=== PATIENT | female | born 1940 | race Caucasian/White ===

== ENCOUNTER 2025-08-25 15:13 | Outpatient (AMB) | payer MEDICARE, SELFPAY ==
[2025-08-25 15:15] VITALS: BP 179/79; PULSE 84; RESP 16; O2SAT 98; BMI 38.1
--- NOTE | 2025-08-25 15:15 | A.OFFVIS_ITS ---
Vital Signs 08/25/25 15:15 Height 5 ft 3 in Weight 215 lb BMI 38.1 BP 179/79 H Blood Pressure Location Lt brachial Position Sitting Respiration 16 Pulse 84 Pulse Source Pulse Oximeter Pulse Oximetry (%) 98 Oxygen Delivery Method Room Air Intake Visit Reasons: Neck/shoulder pain Huc Required: No Accompanied by: Daughter Allergies gabapentin Allergy (Mild, Verified 08/25/25 15:21) stroke shingles vaccine Allergy (Severe, Uncoded 08/25/25 15:21) hives HPI Comments Details: Margot is very pleasant 85 years old female who presents in my office with complains on pain in the middle of the neck with radiation of the pain into bilateral shoulders as well as pain in the lower back. She reported that before her pacemaker surgery she did not have any symptoms like that. She reports that her pain in the neck is 8/10 pain in the lower back is 9/10. Because of her pain she can not do activities of daily living, she can not sleep normally she is able to take care of herself but she can not function normally. She is retired individual. Weather changes and motions aggravate her pain and Voltaren gel helps her pain minimally to moderately. The pain is worse during the daytime and alleviated by positioning in bed and sleeping. She had multiple images performed for her lumbar and cervical spine unfortunately those images are not available for me today. She completed physical therapy and continues to do so with visiting nurse. She denies any help from the physical therapy. She is getting massage therapy with minimal effectiveness. She also went to Occupational therapy it was not effective for her pain. She did not have any injections. Her past medical history significant for headaches, hypertension, dizziness, history of heart murmur, shortness of breath, history of UTI, digestive problems and arthritis. She has very extensive past surgical history. 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 It was separate surgery performed at [facility]. She recently started to develop paroxysmal AFib and she was started on pacemaker. She is currently getting Coumadin because of her AFib and she needs Lovenox bridge if she goes for any invasive procedures which would require stop of the Coumadin. She admitted smoking in the past but denies smoking at this time. She denies drinking alcohol denies drinking coffee and caffeinated beverages she denies recreational drugs. PFSH Medical History (Updated 08/26/25 @ 13:01 by Eddy Salgado MD) Pacemaker Bladder prolapse, female, acquired Gall bladder disease Surgical History (Updated 08/25/25 @ 15:37 by Kate Beck MA) Hx of partial nephrectomy H/O left wrist surgery History of knee replacement Hx of hysterectomy Review of Systems Const All systems reviewed & are unremarkable except as noted in HPI and below ENT Reports Normal hearing present Neuro Reports Normal hearing present, Denies Abnormal speech present and Denies Sensory deficit (Neuro) Physical Exam Vital Signs: Last Vital Signs Pulse 84 08/25/25 15:15 Resp 16 08/25/25 15:15 BP 179/79 H 08/25/25 15:15 Pulse Ox 98 08/25/25 15:15 Oxygen Delivery Method Room Air 08/25/25 15:15 BMI result Body Mass Index 38.1 Const General: no acute distress Nutritional Appearance: average body habitus Orientation/consciousness: patient oriented x3 Limitations: physical limitations Eyes General: appearance normal, both eyes and all related structures Pupils: Equal, round and reactive pupils present EOM: EOMs intact bilaterally Neck Other: Limited motion range of the cervical spine. Spurling test is negative. Lhermitte test is negative. Valsalva maneuver is negative. Chest Chest palpation & inspection: normal inspection of the chest Resp Effort & Inspection: normal respiratory effort, able to speak in complete sentences, normal respiratory pattern, no audible wheezes and no cough Cardio Jugular venous distension: no JVD GI Inspection: Yes normal to inspection Neuro General: patient oriented x3 and gait normal Cranial nerves: Yes CN's II-XII intact bilaterally, Yes Equal, round and reactive pupils present, Yes Normal hearing present and Yes Ability to bila terally elevate shoulders present Speech: No Abnormal speech present Gait exam (Neuro): Normal gait present Motor exam (neuro): 5/5 motor strength present throughout Sensory Exam: No Sensory deficit (Neuro) Extrem General: No pedal edema Psych Speech and movement: Normal speech and movement present Affect: normal affect Attitude: cooperative Thought process: Normal thought process present Thought content: Normal thought content present Insight: Good insight present (Psych) Judgement: Good judgement present (Psych) Assessment & Plan Assessment & Plan (1) Spondylosis of cervical spine: Code(s): M47.812 - Spondylosis without myelopathy or radiculopathy, cervical region Category: Medical Plan On physical exam this patient is most likely suffering from spondylosis of cervical spine. I requested a daughter of this patient who was in presents today with the patient to bring me the reports of those diagnostic studies which were done in [facility]. Meanwhile I will schedule this patient for diagnostic medial branch block C4, C5, C6 bilateral to help her pain. If this will be a good to help the pain of this patient radiofrequency ablation of the medial branches versus sprint PNS of the multifidus muscle of the neck could be considered to help the pain of this patient. Coding Level of Care Code New Pt Level 3 (26501) Diagnoses Spondylosis of cervical spine M47.812
--- OUTSIDE RECORDS SUMMARY | 2025-08-25 19:04 | XMS_ITS | Clinical Summary ---
Author Organization [facility] Address [address] [place] [phone] Phone Care Team Providers Care Spike Driver Name Role Phone Clarisse Longoria MD Primary Care Provider [phone] Allergies Active Allergy Reactions Criticality Noted Date Comments Furosemide Other (see comments) 07/03/2022 Other reaction(s): 'go crazy and fell out of bed Other Reaction(s): 'go crazy and fell out of bed Other reaction(s): 'go crazy and fell out of bed Gabapentin Other (see comments) 03/12/2021 Other reaction(s): chest pain and could not breathe Other Reaction(s): heart attack symptoms Ibuprofen GI intolerance,Other (see comments) 08/09/2024 Zoster Vac Recomb Adjuvanted Hives Low 07/07/2025 broke out in shingles at injection site Zoster Vaccine Recombinant, Adjuvanted Hives 08/09/2024 Medications acetaminophen (TYLENOL) 325 MG tablet Take 975 mg by mouth every 6 hours 11/18/2024 Active albuterol HFA (PROVENTIL HFA;VENTOLIN HFA) 108 (90 Base) MCG/ACT inhaler Inhale 2 puffs every 30 minutes as needed 05/27/2022 Active amiodarone (PACERONE) 200 MG tablet Take 100 mg by mouth in the morning. 05/02/2025 Active atorvastatin (LIPITOR) 20 MG tablet Take 20 mg by mouth every night Active atorvastatin (LIPITOR) 20 MG tablet Take 20 mg by mouth 07/23/2021 Active budesonide (PULMICORT) 0.5 MG/2ML nebulizer solution Inhale 0.5 mg 03/04/2025 Active budesonide-form oterol (SYMBICORT) 160-4.5 MCG/ACT inhaler Inhale 2 puffs in the morning and 2 puffs in the evening. 02/02/2025 Active Butalbital-APAP -Caffeine 50-300-40 MG capsule Take 1 capsule by mouth 10/31/2021 Active cetirizine (ZyrTEC) 10 MG tablet Take 10 mg by mouth in the morning. 07/23/2021 Active famotidine (PEPCID) 20 MG tablet Take 20 mg by mouth in the morning and 20 mg in the evening. 07/23/2021 Active fluticasone (FLONASE) 50 MCG/ACT nasal spray 1 spray in the morning. Active Fluticasone-Jacques meterol 250-50 MCG/ACT aerosol powder Inhale 1 puff in the morning and 1 puff in the evening. Active levothyroxine (SYNTHROID, LEVOTHROID) 50 MCG tablet Take 50 mcg by mouth 07/23/2021 Active montelukast (SINGULAIR) 10 MG tablet Take 10 mg by mouth every night 07/19/2022 Active warfarin (COUMADIN) 5 MG tablet Take by mouth Active oxyCODONE (ROXICODONE) 5 MG immediate release tablet take 1 tablet (5 mg) by oral route every 6 hours as needed 06/23/2025 Active amLODIPine (NORVASC) 10 MG tablet Take 1 tablet (10 mg total) by mouth 07/07/2025 Active bumetanide (BUMEX) 1 MG tablet Take 1 tablet (1 mg total) by mouth 1 (one) time each day if needed (weight gain 2 lb) 07/07/2025 Active Active Problems Problem Noted Date Diagnosed Date Asthma 05/30/2025 Fournier's esophagus 05/30/2025 Chronic kidney disease 05/30/2025 Gastro-esophageal reflux disease without esophag itis 05/30/2025 Glaucoma 05/30/2025 H/O: pulmonary embolus 05/30/2025 Hyperlipidemia 05/30/2025 Hypertensive disorder 05/30/2025 Disorder of thyroid 05/30/2025 Long-term current use of anticoagulant Malignant tumor of kidney 05/30/2025 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/30/2025 Severe obesity 05/30/2025 Vertigo 05/30/2025 Mass of urinary system structure 11/15/2024 Antiphospholipid antibody syndrome 11/09/2024 Overview (05/30/2025): Lifelong anticoagulation, f/b pcp Chronic obstructive pulmonary disease 11/09/2024 S/P nephrectomy 11/09/2024 Overview (05/30/2025): Left nephrectomy for urothelial ca Encounters Date Type Department Care Team Description 07/07/2025 1:30 PM EDT Office Visit [facility] [address] [place] [phone] Luis Norris MD Antiphospholipid antibody syndrome (HCC) (Primary Dx); Stage 3b chronic kidney disease (HCC) from Last 3 Months Social History Tobacco Use Types Packs/Day Years Used Date Smoking Tobacco: Never Assessed Comments Unknown Sex and Gender Information Value Date Recorded Sex Assigned at Not on file Legal Sex Female 8:52 AM EDT Gender Identity Not on file Sexual Orientation Not on file Last Filed Vital Signs Vital Sign Reading Time Taken Comments Blood Pressure 120/62 07/07/2025 1:53 PM EDT Pulse 60 07/07/2025 1:53 PM EDT Temperature - - Respiratory Rate - - Oxygen Saturation 93% 07/07/2025 1:53 PM EDT Inhaled Oxygen Concentration - - Weight 99.4 kg (219 lb 3.2 oz) 07/07/2025 1:53 P M EDT Height - - Body Mass Index - - Plan of Treatment Upcoming Encounters Date Type Department Care Team (Late st Contact Info) Description 09/29/2025 3:30 PM EST Office Visit [facility] [address] [place] [address] Luis Norris MD [address] [facility] [address] [place] [id number] Health Maintenance Due Date Last Done Comments Influenza Vaccine (#1) 2025 Pneumococcal Vaccine: 50+ Years Completed 10/21/2016, 02/03/2012 Hepatitis B Vaccine Aged Out No longe r eligible based on patient's age to complete this topic Insurance [facility] Care Teams Spike Driver Relationship Specialty Start Date End Date Clarisse Longoria MD [address] [place] [address] PCP - General Internal Medicine 07/07/25
--- OUTSIDE RECORDS SUMMARY | 2025-08-25 19:04 | XMS_ITS | Encounter Summary ---
Author Organization [facility] Address [address] [place] [address] Phone Care Team Providers Care Residential Property Tax Appraiser Name Role Phone Dulce Jacobsen MD Primary Care Provide r Clarisse Longoria MD Primary Care Provider [phone] Kieran Jackson MD Unavailable [phone] Reason for Referral * Physical Therapy (Routine) - Closed Specialty Diagnoses / Procedures Referred By Arnulfo ni Referred To Contact Physical Therapy Diagnoses Encounter for rehabilitation System, Provider Not In, PhD [id number] [place] [phone] Phone: tel: Referral ID Status Reason Start Date Expiration Date Visits Re quested Visits Authorized [id number] Closed 10/20/2018 11/09/2019 99 [phone] Encounter Details Date Type Department Care Team (Late st Contact Info) Description 10/06/2018 Transcribe Orders [facility] [address] [place] [phone] Dulce Jacobsen MD [address] [place] [phone] Encounter for rehabilitation (Primary Dx) Social History Tobacco Use Types Packs/Day Years Used Date Smoking Tobacco: Never Assessed Comments Unknown Sex and Gender Information Value Date Recorded Sex Assigned at Female 10/14/2024 3:54 PM EST Legal Sex Female 3:44 PM EDT Gender Identity Female 10/14/2024 3:54 PM EST Sexual Orientation Straight 10/14/2024 3: 54 PM EST documented as of this encounter Plan of Treatment Scheduled Referrals Name Type Priority Associated Diagnoses Orde r Schedule Ambulatory referral to [facility] Physical Therapy Outpatient Referral Routine Encounter for rehabilitation Ordered: 10/06/2018 documented as of this encounter Visit Diagnoses Diagnosis Encounter for rehabilitation- Primary documented in this encounter Additional Health Concerns Infection Onset Date Last Indicated Resolved Time CoV-Risk 08/09/2024 08/09/2024 08/20/2024 1:22 AM EDT documented as of this encounter Care Teams Residential Property Tax Appraiser Relationship Specialty Start Date End Date Dulce Jacobsen MD [address] [place] [phone] PCP - General Internal Medicine 03/29/16 07/16/21 Clarisse Longoria MD [address] [place] [address] [address] [place] [address] [email or web address] PCP - General Internal Medicine 07/17/21 Kieran Jackson MD [address] [phone] [email or web address] Referring Physician Urology 10/14/24 documented as of this encounter Additional Source Comments The information contained in this document represents components of the legal health record. It is not the complete legal health record.[facility]
--- OUTSIDE RECORDS SUMMARY | 2025-08-25 19:05 | XMS_ITS | Patient Health Record ---
Author Organization [facility] Address [address] [place] [address] Care Team Providers Care Assistant Chief Nursing Officer Name Role Phone Clarisse Longoria Primary Care Provider Wally Dickson Unavailable [phone] Allergies Allergen (clinical drug ingredient) Drug/Non Drug Allergy documented on EMR Reaction Allergy Type Onset Date Status ibuprofen Advil upset stomach Drug Allergy Act perla varicella zoster virus glycoprotein E Shingrix hives Drug Allergy Active gabapentin Gabapentin heart attack symptoms Drug Allergy Active Reason For Referral No Information Medications Medication SIG (Take, Route, Frequency, Duration) Notes Start Date End Date Status Coumadin Active Diclofenac Sodium 1 % as directed Externally Active Butalbital-Acetaminophen 50-325 MG 1 tablet as needed Orally every 4 hrs Active Carvedilol 6.25 MG 1 tablet with food Orally Twice a day; Duration: 30 day(s) Active amLODIPine Besylate 5 MG 1 tablet Orally Once a day; Duration: 30 day(s) Active Atorvastatin Calcium 20 MG 1 tablet Oral ly Once a day; Duration: 30 day(s) Active ZyrTEC Allergy 10 MG 1 tablet Orally Onc e a day; Duration: 30 day(s) Active Famotidine 20 MG 1 tablet at bedtime as needed Orally Once a day; Duration: 30 day(s) Active Levothyroxine Sodium 50 MCG 1 tablet in the morning on an empty stomach Orally Once a day; Duration: 30 day(s) Active flonase 50 mcg/act A ctive Social History Tobacco Use: Social History Observation Description Date Details (start date - stop date) Former Smoker NA - NA Tobacco Use/Smoking Question Answer Notes Are you a: former smoker Additional Findings: Tobacco Non-User Current no n-smoker Alcohol Screen Question Answer Notes Did you have a drink containing alcohol in the p ast year? No Points 0 Interpretation Negative Tobacco use other than smoking: Question Answer Notes Are you an other tobacco user? No Problems Problem Type SNOMED Code ICD Code Onset Dates Problem Status W/U Status Risk Notes Problem Bilateral atherosclerosis of arteries of lower limbs (disorder) ([id number] ) Atherosclerosis of [place]hoe artery of both lower extremities, with unspecified presence of clinical manifestation (I70.203) Active confirmed Plan Of Treatment Pending Test Test Name Order Date X ray : Foot, left 3V 02/06/2022 X ray : Foot, right 3V 02/06/2022 Insurance Providers Payer Name Payer Address Payer Phone Subscriber Number Group Number Insured Name Patient Relationship to Insured Coverage Start Date Coverage End Date [facility] 65 Medicare Preferred [address] [place] [address] [id number] Margot Rose Self - patient is the insured Medical (General) History Medical History History ICD Code Arthritis Back,Hip,and Knee pain Broken bones CAD (Cholesterol) Cataracts Chicken pox Gall bladder problems Headaches/Migraines Hiatal hernia High blood pressure Joint implants/screws Measles Mumps Barretts esophagus raynauds disease Reflux ( GERD) chronic sinusitis thyroid Vascular phlebitis (clots) Surgical History Surgery Date(Month/Year) gall bladder hysterectomy 1998 knee surgery 2014 Left Hand Surgery 02/2021 bladder surgery 07/2021
--- OUTSIDE RECORDS SUMMARY | 2025-08-25 19:05 | XMS_ITS | Clinical Summary ---
Author Organization [facility] Address [address] [facility] [address] [place] [address] Phone Care Team Providers Care Autism Tutor Name Role Phone Clarisse Longoria MD Primary Care Provider [phone] Kieran Jackson MD Unavailable [phone] Allergies Active Allergy Reactions Criticality Noted Date Comments Furosemide 07/03/2022 Other Reaction(s): 'go crazy and fell out of bed Other reaction(s): 'go crazy and fell out of bed Gabapentin 03/12/2021 Other Reaction(s): heart attack symptoms Ibuprofen GI Upset 08/09/2024 Varicella-Zoster Ge-As01b (Pf) 07/03/2022 broke out in shingles at injection site broke out in shingles at injection site Varicella-Zoster Virus Glycoprotein E, Recombinant Hives 08/09/2024 Medications albuterol 90 mcg/actuation inhaler Inhale 2 puffs into the lungs every 4 (four) hours as needed for shortness of breath/dyspnea or wheezing. 5 Active carvedilol (COREG) 6.25 MG tablet Take 6.25 mg by mouth 2 (two) times a day with meals. 2 Active cetirizine (ZYRTEC) 10 MG tablet Take 10 mg by mouth daily. 1 Active diclofenac sodium (VOLTAREN) 1 % Gel Apply topically. 1 Active montelukast (SINGULAIR) 10 mg tablet Take 1 tablet by mouth every morning. 4 Active nystatin (NYAMYC) powder Apply topically. 2 Active PEG 400-propylene glycol (SYSTANE) 0.4-0.3 % Drop Apply 1 drop to eye daily. Active atorvastatin (LIPITOR) 20 MG tablet Take 20 mg by mouth daily. 1 Active famotidine (PEPCID) 20 MG tablet Take 20 mg by mouth 2 (two) times a day. Active levothyroxine (SYNTHROID, LEVOTHROID) 50 MCG tablet Take 50 mcg by mouth daily. Active latanoprost (XALATAN) 0.005 % ophthalmic solution Place 1 drop into the left eye nightly at bedtime. 4 Active amLODIPine (NORVASC) 2.5 MG tablet Take 2.5 mg by mouth daily. Active butalbital-acet aminophen-caffe ine (FIORICET, ESGIC) 50-325-40 mg per tablet Take 1 tablet by mouth every 4 (four) hours as needed for pain (specific location in comments). Active acetaminophen (TYLENOL) 325 mg tablet Take 3 tablets (975 mg total) by mouth every 6 (six) hours. 5 Active warfarin sodium (WARFARIN, BULK,) 100 % Powd Take 5 mg by mouth daily. 5mg daily 12/15/24 5 Active budesonide-form oterol (BREYNA) 160-4.5 mcg/actuation inhaler Inhale 2 puffs into the lungs 2 (two) times a day. 5 Active Active Problems Problem Noted Date Diagnosed Date Ureteral mass 11/15/2024 Antiphospholipid antibody syndrome 11/09/2024 Overview (11/09/2024): Lifelong anticoagulation, f/b pcp COPD (chronic obstructive pulmonary disease) PAD (peripheral artery disease) 11/09/2024 Urothelial carcinoma 11/09/2024 S/p nephrectomy 11/09/2024 Overview (11/09/2024): Left nephrectomy for urothelial ca Hypertensive disorder Disorder of thyroid Family History Medical History Relation Comments Macular degeneration Mother Diabetes Neg Hx Glaucoma Neg Hx Relation Status Comments Mother Social History Tobacco Use Types Packs/Day Years Used Date Smoking Tobacco: Former Smokeless Tobacco: Never Tobacco Cessation:Counseling Given: Not Answered Alcohol Use Standard Drinks/Week Comments Never 0 (1 standard drink = 0.6 oz pur e alcohol) Home Health Assessment: Transportation Answer Date Recorded Lack of Transportation (Medical) No 02/09/2025 Lack of Transportation (Non-Medical) No 02/09/2025 Patient Unable or Declines to Respond No 02/09/2025 Child or Family Care Answer Date Record ed Do you have problems with on e of the following making it difficult for you to work, study, or receive health care? No 11/30/2024 Education Answer Date Recorded Are you interested in more education? Not on escobar e 03/07/2023 Are you concerned about learning? Not on file 03/07/2023 No 03/07/2023 No 03/07/2023 Food Answer Date Recorded Within the past 6 months we worried whether our food would run out before we got money to buy more. Never True 11/30/2024 Within the past 6 months the food we bought just didn't last and we didn't have enough money to get more. Never True Residential Stability Answer Date Recor ded What is your housing situation today? I have kayleen sing 11/30/2024 How many times have you move d in the past 12 months? Zero (I did not move) 11/30/2024 Paying for Meds Answer Date Recorded Do you have trouble paying for medicines? No 11/30/2024 Paying Utility Bills Answer Date Record ed Do you have trouble paying your heating or elect ricity bill? No 11/30/2024 Transportation Answer Date Recorded Has the lack of transportati on kept you from medical appointments or from getting medications? No 11/30/2024 Digital Access Answer Date Recorded No 11/15/2024 Yes 11/15/2024 Do you have reliable internet access at home? Ye s 11/15/2024 Do you have a device (e.g., phone, tablet, computer) with a working camera? Yes 11/15/2024 Intimate Partner Violence Answer Date R ecorded Are you denied basic needs s uch as food, clothing, or medical care? Deferred 11/15/2024 In the past 12 months have y ou been in a relationship with a person who hurts, threatens, or tries to control you? Deferred 11/15/2024 Are you denied basic needs s uch as food, clothing, or medical care? Deferred 11/15/2024 In the past 12 months have y ou been in a relationship with a person who hurts, threatens, or tries to control you? Deferred 11/15/2024 Comments No Sex and Gender Information Value Date Recorded Sex Assigned at Female 10/14/2024 3:54 PM EST Legal Sex Female 3:44 PM EDT Gender Identity Female 10/14/2024 3:54 PM EST Sexual Orientation Straight 10/14/2024 3: 54 PM EST Last Filed Vital Signs Vital Sign Reading Time Taken Comments Blood Pressure 146/65 02/18/2025 2:30 PM EDT Pulse 59 02/18/2025 2:30 PM EDT Temperature 36.3 C (97.4 F) 02/09/2025 10:34 AM EDT Respiratory Rate 18 02/09/2025 10:34 AM EDT Oxygen Saturation 99% 02/09/2025 10:34 AM EDT Inhaled Oxygen Concentration - - Weight 100.7 kg (222 lb) 02/18/2025 2:27 PM EDT Height 160 cm (5' 3 ) 02/18/2025 2:27 PM EDT Body Mass Index 39.33 02/18/2025 2:27 PM EDT Plan of Treatment Health Maintenance Due Date Last Done Comments TSH LEVEL 1941 DEPRESSION SCREENING 1953 OSTEOPOROSIS SCREENING INITIAL (ONE-TIME) 2006 RSV VACCINE (1 - 1-dose 75+ series) 2016 INFLUENZA VACCINE (#1) 2025 , 08/27/2023, 09/02/2022, Additional history exists COVID-19 VACCINE ( season) 2025 12/28/2024, 08/27/2023, 09/02/2022, Additional history exists BLOOD PRESSURE 08/20/2025 02/18/2025 Adult Td,Tdap Booster 07/02/2034 07/02/2024 , 08/09/2013, 02/03/2012 PNEUMOCOCCAL VACCINES (50+ years) Completed 10/21/2016, 02/03/2012 HEPATITIS A VACCINES Aged Out No long er eligible based on patient's age to complete this topic HIB VACCINES Aged Out No longer eligi ble based on patient's age to complete this topic MENINGOCOCCAL VACCINES (ACWY) Aged Out No longer eligible based on patient's age to complete this topic MENINGOCOCCAL VACCINES (B) Aged Out N o longer eligible based on patient's age to complete this topic Medical Devices Implanted Type Area Solutions Architect Device Identifier Shelf Expiration Date Model / Serial / Lot Prosthetic Joint Prosthetic Joint Bilatera l: [place] [address] [place] [address] MEDICARE PPO BLUE [place] [address] [place] [address] MEDICARE PPO [place] [address] [place] [address] MEDICARE PPO BLUE REPLACEMENT Advance Directives For more information, please contact: [phone] (9AM - 5PM [place], Friday-Friday) * Full Code (Latest Code Status on File) Date Activated Date Inactivated Comments 11/15/2024 4:45 PM Question Answer Comments Code Status Confirmed With: Patient Care Teams Autism Tutor Relationship Specialty Start Date End Date Clarisse Longoria MD [address] [facility] [address] [place] [address] [email or web address] PCP - General Internal Medicine 07/17/21 Kieran Jackson MD 100 [facility] [address] [place] [address] [email or web address] Referring Physician Urology 10/14/24 Additional Source Comments The information contained in this document represents components of the legal health record. It is not the complete legal health record.[facility]
--- OUTSIDE RECORDS SUMMARY | 2025-08-25 19:05 | XMS_ITS | Clinical Summary ---
Author Organization [facility] Address [address] [place] [id number] Care Team Providers Care Marketing Sales Consultant Name Role Phone AimeeseanClarisse Primary Care Provider [phone] Allergies Active Allergy Reactions Criticality Noted Date Comments Furosemide 07/03/2022 Other reaction(s): 'go crazy and fell out of bed Gabapentin 03/12/2021 Other reaction(s): chest pain and could not breathe Varicella-Zoster Ge-As01b (Pf) 07/03/2022 broke out in shingles at injection site Medications albuterol 90 mcg/actuation inhaler INHALE 1 TO 2 PUFFS BY MOUTH EVERY 4 TO 6 HOURS NEEDED 2 Active amLODIPine (NORVASC) 5 mg tablet Take 5 mg by mouth daily. 2 Active aspirin 81 mg EC tablet Take 81 mg by mouth. 1 Active atorvastatin (LIPITOR) 20 mg tablet Take 20 mg by mouth. 1 Active olopatadine (PATADAY) 0.2 % ophthalmic solution Apply to eye. 1 Active cetirizine (ZYRTEC) 10 mg tablet Take 10 mg by mouth. 1 Active diclofenac sodium gel Apply topically. 1 Active carvediloL (COREG) 6.25 mg tablet Refills 0, Maintenance, 02/28/22 11:56:00 EDT, Partial fill upon patient request if the prescription is for a schedule II opioid drug. 2 Active butalbital-acet aminophen-caffe ine (FIORICET) 50-300-40 mg per capsule Take 1 capsule by mouth. 1 Active famotidine (PEPCID) 20 mg tablet TAKE 1 TABLET (20 MG) BY ORAL ROUTE 2 TIMES PER DAY 2 Active lisinopriL (PRINIVIL) 10 mg tablet Take 10 mg by mouth daily. Active levothyroxine (SYNTHROID) 50 mcg tablet TAKE 1 TABLET BY MOUTH EVERY DAY FOR 90 DAYS 2 Active nystatin (MYCOSTATIN) powder Apply 1 application topically to affected area 2 times daily. 2 Active peg 400-propylene glycol (SYSTANE) 0.4-0.3 % ophthalmic solution Apply 1 Drop to eye daily. Active warfarin (COUMADIN) 7.5 mg tablet Take 7.5 mg by mouth. 1 Active warfarin (COUMADIN) 2.5 mg tablet 2 Active trospium 60 mg TAKE 1 CAPSULE BY MOUTH EVERY DAY PLEASE ADVISE PT NEEDS APPT FOR FURTHER REFILLS. 2 Active Active Problems No known active problems Social History Tobacco Use Types Packs/Day Years Used Date Smoking Tobacco: Never Assessed Interpersonal Safety Answer Date Record ed Physically Hurt Never 10/03/2020 Verbally Threaten Not on file 10/03/2020 Comments Unknown Sex and Gender Information Value Date Recorded Sex Assigned at Not on file Legal Sex Female 12:29 EDT Gender Identity Female 04/22/2022 12:07 EDT Sexual Orientation Not on file Obstetrics History Last Filed Vital Signs Vital Sign Reading Time Taken Comments Blood Pressure 124/70 07/03/2022 1213 EDT Pulse 60 07/03/2022 1213 EDT Temperature 37 C (98.6 F) 07/03/2022 1213 EDT Respiratory Rate 17 07/03/2022 1213 EDT Oxygen Saturation 99% 07/03/2022 1213 EDT Inhaled Oxygen Concentration - - Weight 102.1 kg (225 lb) 07/03/2022 1213 EDT Height 160 cm (5' 3 ) 07/03/2022 1213 EDT Body Mass Index 39.86 07/03/2022 1213 EDT Plan of Treatment Health Maintenance Due Date Last Done Comments Fall Risk Screening 2006 RSV Immunization ( o r 60+ Years) (1 - 1-dose 75+ series) 2016 COVID-19 Vaccine (2023-25 season) 2024 Insurance Care Teams Marketing Sales Consultant Relationship Specialty Start Date End Date Clarisse Longoria [address] [address] PCP - General 04/22/22
--- OUTSIDE RECORDS SUMMARY | 2025-08-25 19:05 | XMS_ITS | Encounter Summary ---
Author Organization [facility] Address [address] [facility] [address] [place] [address] Phone Care Team Providers Care Wool Hat Hydraulicker Name Role Phone Dulce Jacobsen MD Primary Care Provide r Clarisse Longoria MD Primary Care Provider [phone] Kieran Jackson MD Unavailable [phone] Encounter Details Date Type Department Care Team (Late st Contact Info) Description 03/12/2021 Procedure Pass [place] Admitting Dept - Virtual Department [address] [place] [id number] Social History Tobacco Use Types Packs/Day Years Used Date Smoking Tobacco: Never Assessed Comments Unknown Sex and Gender Information Value Date Recorded Sex Assigned at Female 10/14/2024 3:54 PM EST Legal Sex Female 3:44 PM EDT Gender Identity Female 10/14/2024 3:54 PM EST Sexual Orientation Straight 10/14/2024 3: 54 PM EST documented as of this encounter Plan of Treatment Not on file documented as of this encounter Visit Diagnoses Not on filedocumented in this encounter Additional Health Concerns Infection Onset Date Last Indicated Resolved Time CoV-Risk 08/09/2024 08/09/2024 08/20/2024 1:22 AM EDT documented as of this encounter Care Teams Wool Hat Hydraulicker Relationship Specialty Start Date End Date Dulce Jacobsen MD [address] [place] [address] PCP - General Internal Medicine 03/29/16 07/16/21 Clarisse Longoria MD [address] [place] [address] [address] [place] [address] [email or web address] PCP - General Internal Medicine 07/17/21 Kieran Jackson MD [address] [address] [email or web address] Referring Physician Urology 10/14/24 documented as of this encounter Additional Source Comments The information contained in this document represents components of the legal health record. It is not the complete legal health record.[facility]
--- OUTSIDE RECORDS SUMMARY | 2025-08-25 19:05 | XMS_ITS | Encounter Summary ---
Author Organization [facility] Address [address] [place] [address] Phone Care Team Providers Care Veneer Clipper Helper Name Role Phone Clarisse Longoria MD Primary Care Provider [phone] Kieran Jackson MD Unavailable [phone] Encounter Details Date Type Department Care Team (Late st Contact Info) Description 09/17/2024 Procedure Pass MRI, [facility] [address] [place] [address] Social History Tobacco Use Types Packs/Day Years Used Date Smoking Tobacco: Former Smokeless Tobacco: Never Education Answer Date Recorded Are you interested in more education? Not on escobar e 03/07/2023 Are you concerned about learning? Not on file 03/07/2023 No 03/07/2023 No 03/07/2023 Digital Access Answer Date Recorded No 04/07/2023 No 04/07/2023 Reliable internet access at home? Not on file 04/07/2023 Device with a working camera? Not on file Comments Unknown Sex and Gender Information Value Date Recorded Sex Assigned at Female 10/14/2024 3:54 PM EST Legal Sex Female 3:44 PM EDT Gender Identity Female 10/14/2024 3:54 PM EST Sexual Orientation Straight 10/14/2024 3: 54 PM EST documented as of this encounter Plan of Treatment Not on file documented as of this encounter Visit Diagnoses Not on filedocumented in this encounter Care Teams Veneer Clipper Helper Relationship Specialty Start Date End Date Clarisse Longoria MD 300 [facility] [address] [place] [address] [email or web address] PCP - General Internal Medicine 07/17/21 Kieran Jackson MD 100 [facility] [address] [place] [phone] [email or web address] Referring Physician Urology 10/14/24 documented as of this encounter Additional Source Comments The information contained in this document represents components of the legal health record. It is not the complete legal health record.[facility]
--- OUTSIDE RECORDS SUMMARY | 2025-08-25 19:05 | XMS_ITS | Encounter Summary ---
Author Organization [facility] Address [address] [place] [address] Phone Care Team Providers Care Career Developer Name Role Phone Clarisse Longoria MD Primary Care Provider [phone] Kieran Jackson MD Unavailable [phone] Encounter Details Date Type Department Care Team (Late st Contact Info) Description 09/17/2024 Procedure Pass MRI, [facility] [address] [place] [address] Social History Tobacco Use Types Packs/Day Years [...] on filedocumented in this encounter Care Teams Career Developer Relationship Specialty Start Date End Date Clarisse Longoria MD 300 [facility] [address] [place] [address] [email or web address] PCP - General Internal Medicine 07/17/21 Kieran Jackson MD 100 [facility] 120 [place] [phone] [email or web address] Referring Physician Urology 10/14/24 documented as of this encounter Additional Source Comments The information contained in this document represents components of the legal health record. It is not the complete legal health record.[facility]
--- OUTSIDE RECORDS SUMMARY | 2025-08-25 19:05 | XMS_ITS | Patient Health Record ---
Author Organization [facility] Address [address] [place] [phone] Care Team Providers Care Film Waxer Name Role Phone Gordon Mcarthur Unavailable [phone] Reason For Referral No Information Plan Of Treatment No Information
--- OUTSIDE RECORDS SUMMARY | 2025-08-25 19:05 | XMS_ITS | Encounter Summary ---
Author Organization [facility] Address [address] [facility] [address] [place] [address] Phone Care Team Providers Care Post Adoption Coordinator Name Role Phone Clarisse Longoria MD Primary Care Provider [phone] Kieran Jackson MD Unavailable [phone] Encounter Details Date Type Department Care Team (Late st Contact Info) Description 11/15/2024 Procedure Pass [facility] [address] [place] [address] Social History Tobacco Use Types Packs/Day Years Used Date Smoking Tobacco: Former Smokeless Tobacco: Never Alcohol Use Standard Drinks/Week Comments Never 0 (1 standard drink = 0.6 oz pur e alcohol) Education Answer Date Recorded Are you interested in more education? Not on escobar e 03/07/2023 Are you concerned about learning? Not on file 03/07/2023 No 03/07/2023 No 03/07/2023 Food Answer Date Recorded Within the past 6 months we worried whether our food would run out before we got money to buy more. Never True 11/15/2024 Within the past 6 months the food we bought just didn't last and we didn't have enough money to get more. Never True Residential Stability Answer Date Recor ded What is your housing situation today? I have kayleen sing 11/15/2024 How many times have you move d in the past 12 months? Zero (I did not move) 11/15/2024 Paying for Meds Answer Date Recorded Do you have trouble paying for medicines? No 11/15/2024 Paying Utility Bills Answer Date Record ed Do you have trouble paying your heating or elect ricity bill? No 11/15/2024 Transportation Answer Date Recorded Has the lack of transportati on kept you from medical appointments or from getting medications? No 11/15/2024 Digital Access Answer Date Recorded No 11/15/2024 [...] PM EST documented as of this encounter Functional Status * Calculated C-SSRS Risk Score (Lifetime/Recent) Answer Date of Assessment Author No Risk Indicated 11/15/2024 8:00 PM Farhana Acosta RN * [place] Suicide Severity Rating Scale (Screener/Recent Self-Report) Question Answer Date of Assessment Author 1. Wish to be (Past 1 Month) No 11/15/2024 8:00 PM Farhana Tom RN 2. Non-Specific Active Suicidal Thoughts (Past 1 Month) No 11/15/2024 8:00 PM Farhana Tom RN 6. Suicidal Behavior (Lifetime) No 11/15/2024 8:00 PM Farhana Tom RN documented as of this encounter Plan of Treatment Not on file documented as of this encounter Visit Diagnoses Not on filedocumented in this encounter Care Teams Post Adoption Coordinator Relationship Specialty Start Date End Date Clarisse Longoria MD 300 [facility] [address] [place] [address] [email or web address] PCP - General Internal Medicine 07/17/21 Kieran Jackson MD 100 [facility] 120 [place] [address] [email or web address] Referring Physician Urology 10/14/24 documented as of this encounter Additional Source Comments The information contained in this document represents components of the legal health record. It is not the complete legal health record.[facility]
== END 2025-08-25 15:51 | disposition home or self-care (01) ==
LOC: HO.PMC 15:14
PROVIDERS: PCP Internal Medicine; Visit Provider Anesthesiology
DX: M47.812 Spondylosis without myelopathy or radiculopathy, cervical region (principal)
CPT/HCPCS: 99203

== ENCOUNTER → 2025-08-25 15:13 | Outpatient (BNVA) | payer MEDICARE, SELFPAY | PROVIDERS: PCP Internal Medicine; Visit Provider Anesthesiology | DX: M47.812 Spondylosis without myelopathy or radiculopathy, cervical region (principal) | CPT/HCPCS: 99202 ==